=== PATIENT | male | born 1945 | race Caucasian/White ===

== ENCOUNTER 2020-03-26 15:29 | Emergency (ER) | payer OTHER ==
--- OUTSIDE RECORDS SUMMARY | 2020-03-26 15:30 | XMS REPORT | Continuity of Care Document ---
:1945 Author Organization [facility] t Address [address] [place] [address] Care Team Providers Name Role Phone Felicia Darby MD Attending Clinician Giovanny LEE Attending Clinician Pob1, Care Clinic Attending Clinician Unavailable Pcp, Does Not Have A Attending Clinician Doctor Unassigned, Name Attending Clinician Unavailable Problems This patient has no known problems. Allergies, Adverse Reactions, Alerts This patient has no known allergies or adverse reactions. Medications This patient has no known medications. Procedures This patient has no known procedures. Encounters Start End Encounter Admission Attending Care Care Encounter Source Date/Time Date/Time Type Type Clinicians Facility Department ID 2019-10-03 2019-10-03 Letter Wilner [facility] [id number] 00:00:00 00:00:00 (Out) Strahil Felicia [place] [id number] [place] [id number] Professio [phone] nal 085 [facility] 2019-09-24 2019-09-24 Telephone IBRAHIMA Baltazar [id number] 00:00:00 00:00:00 Rose SIMPSON [id number] [facility] [id number] 2019-09-22 2019-09-22 Urgent Pob1, Acute [facility] [id number] 15:52:44 16:37:01 [facility] [id number] [place] [id number] Professio [phone] nal [address] 2019-09-22 2019-09-22 Telephone Pcp, [facility] [id number] 00:00:00 00:00:00 Patient Health [id number] Does Not Marjorie [id number] Have A Professio [phone] nal [facility] [address] 2019-02-26 2019-02-26 Office Shira, [facility] [id number] 14:30:41 15:00:41 Visit Stacy Felicia [place] [id number] [place] [id number] Professio [phone] [address] 2019-02-26 2019-02-26 Orders Doctor IBRAHIMA [id number] 00:00:00 00:00:00 Only Unassigned, TATIANA [id number] [place] [facility] [id number] 2019-01-17 2019-01-17 Orders Doctor IBRAHIMA [id number] 00:00:00 00:00:00 Only Unassigned, TATIANA [id number] [place] [facility] [id number] 2019-01-09 2019-01-09 Orders Doctor IBRAHIMA [id number] 00:00:00 00:00:00 Only Unassigned, TATIANA [id number] [place] [facility] [id number] Results This patient has no known results.
[2020-03-26] MEDS ORDERED: TETANUS & DIPHTHERIA TOX,ADULT 0.5 ML VIAL ONE (16:20)
[2020-03-26] MEDS ORDERED: HYDROCODONE/APAP 10/325 TAB ONE (16:20)
--- NOTE | 2020-03-26 16:51 | RAD REPORT ---
EXAM DESCRIPTION: CT - CTHCSPWOC - 03/26/2020 4:11 pm CLINICAL HISTORY: fall, head injury, trauma to right side of the head COMPARISON: No comparisons TECHNIQUE: Axial 5 mm thick images of the head were obtained. Axial 2 mm thick images of the cervic al spine were obtained with sagittal and coronal reconstruction images generated and reviewed. All CT scans are performed using dose optimization technique as appropriate and may include automated exposure control or mA/KV adjustment according to patient size. FINDINGS: No intracranial hemorrhage, mass, edema or acute intracranial finding. No acute cortical b ased infarction. No cortical edema or sulcal effacement. Patient has moderate severity atrophy. Ventr icles are in proportion. Chronic ischemic changes are mild. Mastoid air cells and paranasal sinuses a re clear. No globe or orbit abnormality seen. Small right forehead scalp hematoma seen. Cervical bodies are normal in height. There is reversal of the usual cervical lordosis with the apex at C5. Large bridging osteophytes spanning C4-T1 affectively fusing these levels. There is likely res tricted limited motion at C3-4 due to large spurs. Multilevel facet joint degenerative change seen. N o disk space narrowing. No fracture or acute bony abnormality. Central canal detail is inherently li mited. No paraspinal mass or hematoma. IMPRESSION: No hemorrhage, edema or acute intracranial finding. Patient has moderate atrophy and mil d chronic ischemic change. Multilevel cervical spine degenerative change with no fracture or acute finding seen.
--- NOTE | 2020-03-26 16:54 | RAD REPORT ---
EXAM DESCRIPTION: CT - Thorax Wo Con - 03/26/2020 4:11 pm CLINICAL HISTORY: fall, right sided rib pain COMPARISON: No comparisons TECHNIQUE: Axial 5 mm thick images of the chest were obtained without IV contrast. All CT scans are performed using dose optimization technique as appropriate and may include automated exposure control or mA/KV adjustment according to patient size. FINDINGS: No mass or infiltrate in the lung parenchyma. No pleural thickening or pleural effusion. N o pneumothorax or pulmonary contusion. Minimal atelectasis or scarring changes are seen in each poste rior gutter. No abnormal mediastinal or hilar masses or lymphadenopathy seen. No gross aortic or pulmonary artery finding suspected. Assessment is limited in the absence of IV contrast. No chest wall mass or abnormal axillary lymphadenopathy. No right-sided rib fractures identified. Old lateral left fourth rib fracture seen. Thoracic spine de generative changes are present. No compression fracture. IMPRESSION: Noncontrast CT chest imaging, as detailed above, shows no acute or emergent finding.
--- NOTE | 2020-03-26 17:01 | ER ---
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 No LOC. Hematomas noted to forehead. Abrasion R FA. Gait steady. Coronavirus screen: Client denies travel out of the [place] in the last 14 days. At this time, the client does not indicate any symptoms associated with coronavirus-19. Ebola Screen: Patient denies travel to an Ebola-affected area in the 21 days before illness onset. Initial Sepsis Screen: Does the patient meet any 2 criteria? No. Patient's initial sepsis screen is negative. Does the patient have a suspected source of infection? No. Patient's initial sepsis screen is negative. Risk Assessment: Do you want to hurt yourself or someone else? Patient reports no desire to harm self or others. Onset of symptoms was March 26, 2020. 15:39 Method Of Arrival: Ambulatory ll1 15:39 Acuity: HERB 3 ll1 Historical: - Allergies: 15:41 PENICILLINS; ll1 - PMHx: 15:41 Diabetes - NIDDM; ll1 - PSHx: 15:41 CABG; Heart stents; ll1 - Immunization history:: Last tetanus immunization: up to date Flu vaccine is not up to date. - Social history:: Smoking status: Patient reports the use of cigarette tobacco products, cigars. Screenin:13 Abuse screen: Denies threats or abuse. Nutritional screening: No deficits noted. jd3 Tuberculosis screening: No symptoms or risk factors identified. Fall Risk Ambulatory Aid- None/Bed Rest/Nurse Assist (0 pts). Gait- Normal/Bed Rest/Wheelchair (0 pts) Mental Status- Oriented to own ability (0 pts). Total Cast[place]na Fall Scale indicates No Risk (0-24 pts). Assessment: 16:09 General: Appears in no apparent distress. comfortable, Behavior is calm, cooperative, jd3 appropriate for age. Pain: Complains of pain in head Quality of pain is described as aching. Neuro: Level of Consciousness is awake, alert, obeys commands, Oriented to person, place, time, situation, Moves all extremities. Full function Gait is steady, Speech is normal, Pupils are PERRLA. Cardiovascular: Denies chest pain, Capillary refill < 3 seconds Patient's skin is warm and dry. Respiratory: Airway is patent Respiratory effort is even, unlabored, Respiratory pattern is regular, symmetrical. GI: No signs and/or symptoms were reported involving the gastrointestinal system. : No signs and/or symptoms were reported regarding the genitourinary system. EENT: No signs and/or symptoms were reported regarding the EENT system. Derm: Skin is intact, Skin is dry, Skin is normal, Skin temperature is warm. Musculoskeletal: Circulation, motion, and sensation intact. Range of motion: intact in all extremities. Injury Description: Abrasion sustained to forehead and right forearm. 17:21 Reassessment: Patient appears in no apparent distress at this time. Patient and/or jd3 family updated on plan of care and expected duration. Pain level reassessed. Patient is alert, oriented x 3, equal unlabored respirations, skin warm/dry/pink. Vital Signs: 15:39 BP 191 / 87; Pulse 55; Resp 17; Temp 98.3; Pulse Ox 99% ; Weight 92.53 kg; Height 6 ft. ll1 0 in. (182.88 cm); Pain 8/10; 17:21 BP 185 / 89; Pulse 56; Resp 17 S; Pulse Ox 99% on R/A; jd3 15:39 Body Mass Index 27.67 (92.53 kg, 182.88 cm) ll1 ED Course: 15:33 Patient arrived in ED. mr 15:41 Triage completed. ll1 15:42 Arm band placed on Patient placed in an exam room, on a stretcher. 1 15:43 Gilmer Jones PA is PHCP. [facility] 15:43 Carrington Conn MD is Attending Physician. [facility] 16:00 Hi West RN is Primary Nurse. jd3 16:12 CT Head C Spine In Process Unspecified. EDMS 16:12 CT Chest Wo Con In Process Unspecified. EDMS 16:13 Patient has correct armband on for positive identification. Bed in low position. Call jd3 light in reach. Side rails up X 1. Adult w/ patient. Pulse ox on. NIBP on. 17:20 No provider procedures requiring assistance completed. Patient did not have IV access jd3 during this emergency room visit. 17:20 Wound care: to abrasion, located on right forearm was dressed with Neosporin, 4X4s, jd3 Kerlix. 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 Exp: jd3 08/20/2022. Lot #: [id number]. } Route: IM; Site: right deltoid; 17:20 Follow up: Response: No adverse reaction jd3 16:23 Drug: [place] 10 mg-325 mg 1 tabs Route: PO; jd3 17:20 Follow up: Response: No adverse reaction; RASS: Alert and Calm (0) jd3 Outcome: 17:00 Discharge ordered by MD. magana 17:21 Discharged to home ambulatory, with family. jd3 17:21 Condition: stable 17:21 Discharge instructions given to patient, Instructed on discharge instructions, follow up and referral plans. medication usage, Demonstrated understanding of instructions, follow-up care, medications, Prescriptions given X 1. 17:22 Patient left the ED. jd3 Signatures: Dispatcher [employer] EDMS Gilmer Jones PA PA jmm Rivera, Mary mr WestHi RN RN jd3 Azalea Dela Cruz RN RN ll1
--- NOTE | 2020-03-26 17:01 | EDPHYS ---
Physician Documentation [facility] Name: Tim Salter Age: 74 yrs Sex: Male : 1945 Arrival Date: 03/26/2020 Time: 15:33 Bed 16 Private MD: ED Physician Carrington Conn HPI: 03/26 15:53 This 74 yrs old Male presents to ER via Ambulatory with complaints of Fall jmm Injury, Head Injury-Adult. 15:53 Details of fall: The patient fell from an upright position, while walking. Onset: The jmm symptoms/episode began/occurred acutely. Associated injuries: The patient sustained injury to the head. This is a 74 year old male with a history of DM, that presents to the ED with complaints of head injury and right sided chest pain. Patient states he tripped on grass and hit a parking cement block. Denies LOC, vomiting. Patient is not taking eliquis, xarelto, or plavix. Historical: - Allergies: 15:41 PENICILLINS; ll1 - PMHx: 15:41 Diabetes - NIDDM; ll1 - PSHx: 15:41 CABG; Heart stents; ll1 - Immunization history:: Last tetanus immunization: up to date Flu vaccine is not up to date. - Social history:: Smoking status: Patient reports the use of cigarette tobacco products, cigars. ROS: 15:53 Constitutional: Negative for fever, chills, and weight loss. jmm 15:53 Respiratory: Negative for shortness of breath, cough, wheezing, and pleuritic chest pain, Abdomen/GI: Negative for abdominal pain, nausea, vomiting, diarrhea, and constipation, Back: Negative for injury and pain, MS/Extremity: Negative for injury and deformity. 15:53 Cardiovascular: Positive for chest pain, with movement, of the diaphragm and right breast. 15:53 Neuro: Positive for headache, Negative for loss of consciousness. 15:53 All other systems are negative. Exam: 15:53 Constitutional: This is a well developed, well nourished patient who is awake, alert, jmm and in no acute distress. 15:53 Eyes: EOMI, no conjunctival erythema appreciated ENT: Moist Mucus Membranes Neck: Trachea midline, Supple 15:53 Cardiovascular: Regular rate and rhythm. No edema appreciated Respiratory: Normal respirations, no respiratory distress appreciated Abdomen/GI: Non distended, soft Back: Normal ROM Skin: General appearance color normal 15:53 Head/face: Exam is negative for holliday signs, raccoon eyes, 2 hematomas noted to the right frontal scalp. 15:53 Chest/axilla: Palpation: tenderness, that is moderate, of the diaphragm and right breast. 15:53 Musculoskeletal/extremity: FROM noted to the right elbow, wrist, shoulder, full radial pulse, no snuff box tenderness, abrasions noted, NVI. 15:53 Skin: Appearance: Color: normal in color. 15:53 Neuro: Orientation: is normal, Mentation: is normal, Memory: is normal. 15:53 Psych: Behavior/mood is pleasant, cooperative. Vital Signs: 15:39 BP 191 / 87; Pulse 55; Resp 17; Temp 98.3; Pulse Ox 99% ; Weight 92.53 kg; Height 6 ft. ll1 0 in. (182.88 cm); Pain 8/10; 17:21 BP 185 / 89; Pulse 56; Resp 17 S; Pulse Ox 99% on R/A; jd3 15:39 Body Mass Index 27.67 (92.53 kg, 182.88 cm) ll1 MDM: 15:53 Patient medically screened. [facility] 16:59 Data reviewed: vital signs, nurses notes. Counseling: I had a detailed discussion with izzy the patient and/or guardian regarding: the historical points, exam findings, and any diagnostic results supporting the discharge/admit diagnosis, radiology results, the need for outpatient follow up, to return to the emergency department if symptoms worsen or persist or if there are any questions or concerns that arise at home. ED course: Patient is alert and non toxic in appearance. Imaging studies negative. Patient is advised to return to the ED if symptoms worsen. Patient understood and agrees with the plan of care. . 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 Exp: jd3 08/20/2022. Lot #: [id number]. } Route: IM; Site: right deltoid; 17:20 Follow up: Response: No adverse reaction jd3 16:23 Drug: [place] 10 mg-325 mg 1 tabs Route: PO; jd3 17:20 Follow up: Response: No adverse reaction; RASS: Alert and Calm (0) jd3 Disposition: 03/26/20 17:00 Discharged to Home. Impression: Superficial injury of head, Abrasion of right forearm, Chest Wall Contusion. - Condition is Stable. - Discharge Instructions: Rib Contusion, Head Injury, Adult. - Prescriptions for orphenadrine citrate 100 mg Oral Tablet Sustained Release - take 1 tablet by ORAL route 2 times per day As needed; 20 tablet. - Medication Reconciliation Form, Thank You Letter, Antibiotic Education, Prescription Opioid Use form. - Follow up: Private Physician; When: 2 - 3 days; Reason: Recheck today's complaints, Continuance of care, Re-evaluation by your physician. Addendum: 03/27/2020 17:56 Co-signature as Attending Physician, Carrington Conn MD I agree with the assessment and c connell plan of care. Signatures: Dispatcher [employer] EDCarrington Tenorio MD MD cha Mickail, Joel, PA PA Hi Monreal RN RN Azalea Davis RN RN ll1 Corrections: (The following items were deleted from the chart) 03/26 17:22 17:00 03/26/2020 17:00 Discharged to Home. Impression: Superficial injury of head; jd3 Abrasion of right forearm; Chest Wall Contusion. Condition is Stable. Forms are Medication Reconciliation Form, Thank You Letter, Antibiotic Education, Prescription Opioid Use. Follow up: Private Physician; When: 2 - 3 days; Reason: Recheck today's complaints, Continuance of care, Re-evaluation by your physician. izzy
[2020-03-26 18:22] VITALS: TEMP 98.3; O2SAT 99
[2020-03-26 18:23] VITALS: BP 185/89
== END 2020-03-26 17:22 | disposition home or self-care (01) ==
LOC: ER 15:29
DX: S00.90XA Unspecified superficial injury of unspecified part of head, initial encounter (principal); S50.811A Abrasion of right forearm, initial encounter; S20.219A Contusion of unspecified front wall of thorax, initial encounter; W18.09XA Striking against other object with subsequent fall, initial encounter; Y93.01 Activity, walking, marching and hiking; Y92.89 Other specified places as the place of occurrence of the external cause; Z23 Encounter for immunization; Z88.0 Allergy status to penicillin; Z95.1 Presence of aortocoronary bypass graft; Z95.818 Presence of other cardiac implants and grafts; E11.9 Type 2 diabetes mellitus without complications; F17.290 Nicotine dependence, other tobacco product, uncomplicated
CPT/HCPCS: 70450; 71250; 72125; 90471; 90714; 99284